=== PATIENT | male | born 1970 | race Caucasian/White ===

== ENCOUNTER 2016-06-08 14:19 | Inpatient (IN) | payer OTHER ==
[~2016-06-08] VITALS: Ht 167.6 cm; Wt 84.4 kg
[2016-06-08 15:11] LABS: BASOPHIL % 0.6 % (0-2); PLATELET COUNT 300 x10^3mcL (130-400); RED CELL DISTRIBUTION WIDTH 12.7 % (11.5-14.5)
[2016-06-08 15:18] LABS: CALCIUM 8.7 mg/dL (8.5-10.1); CARBON DIOXIDE 28.6 mmol/L (21-32); CHLORIDE SERUM 101 mmol/L (98-107); GFR1 > 60 mL/min; SODIUM SERUM 138 mmol/L (136-145)
[2016-06-08 15:25] LABS: ALBUMIN 4.3 g/dL (3.4-5.0); ALKALINE PHOSPHATASE 77 U/L (46-116); ALT/SGPT 41 U/L (16-63); AST/SGOT 26 U/L (15-37); BILIRUBIN TOTAL 0.7 mg/dL (0.20-1.00); MAGNESIUM 1.9 mg/dL (1.8-2.4); TOTAL PROTEIN, SERUM 7.9 g/dL (6.4-8.2)
[2016-06-08 15:32] LABS: AMPHETAMINE QUAL UR NONE DETECTED (NEG <=1000)
[2016-06-08 16:08] LABS: ERYTHROCYTE SED RATE 10 mm/hr (0-15)
[2016-06-08 16:13] LABS: GLUCOSE SERUM 117 mg/dL (74-106)
[2016-06-08 18:10] VITALS: BP 135/91
[2016-06-08 21:28] LABS: PHOSPHOROUS 3.8 mg/dL (2.5-4.9)
[2016-06-08 21:37] LABS: CHOLESTEROL 267 mg/dL (<200); CHOLESTEROL/HDL RATIO 4.3; HDL CHOLESTEROL 62 mg/dL (40-60); TRIGLYCERIDES 666 mg/dL (<150)
[2016-06-08 21:54] VITALS: BP 125/82
[2016-06-08 23:40] VITALS: BP 125/82
[2016-06-09 00:41] LABS: microscopic required? YES; urine erythrocyte TRACE (NEGATIVE)
[2016-06-09 06:10] VITALS: BP 118/75
[2016-06-09 06:23] LABS: BASOPHIL % 0.8 % (0-2); PLATELET COUNT 244 x10^3mcL (130-400); RED CELL DISTRIBUTION WIDTH 12.9 % (11.5-14.5)
[2016-06-09 06:41] LABS: CALCIUM 7.8 mg/dL (8.5-10.1); CHLORIDE SERUM 106 mmol/L (98-107); CREATININE SERUM 0.8 mg/dL (0.7-1.3); GFR1 > 60 mL/min; GLUCOSE SERUM 100 mg/dL (74-106); PHOSPHOROUS 4.2 mg/dL (2.5-4.9); POTASSIUM SERUM 4.1 mmol/L (3.5-5.1); SODIUM SERUM 139 mmol/L (136-145)
[2016-06-09 08:30] VITALS: BP 124/86
[2016-06-09 13:01] VITALS: BP 126/89
[2016-06-09 17:41] VITALS: BP 118/77
[2016-06-09 20:43] VITALS: BP 121/71
[2016-06-10 05:10] VITALS: BP 107/69
[2016-06-10 06:22] LABS: BASOPHIL % 0.8 % (0-2); PLATELET COUNT 228 x10^3mcL (130-400); RED CELL DISTRIBUTION WIDTH 12.9 % (11.5-14.5)
[2016-06-10 06:25] LABS: CALCIUM 7.9 mg/dL (8.5-10.1); CARBON DIOXIDE 23.6 mmol/L (21-32); CHLORIDE SERUM 107 mmol/L (98-107); CREATININE SERUM 0.8 mg/dL (0.7-1.3); GFR1 > 60 mL/min; GLUCOSE SERUM 98 mg/dL (74-106); PHOSPHOROUS 3.8 mg/dL (2.5-4.9); POTASSIUM SERUM 3.9 mmol/L (3.5-5.1); SODIUM SERUM 142 mmol/L (136-145)
[2016-06-10] MEDS ORDERED: LIPI10 PO (09:14)
[2016-06-10] MEDS ORDERED: PRI20 PO (09:14)
[2016-06-10] MEDS ORDERED: TRICOR48 M1 PO (09:14)
[2016-06-10 10:19] VITALS: BP 109/74
[2016-06-10 12:02] VITALS: BP 109/74
[2016-06-10 12:50] VITALS: BP 120/83
== END 2016-06-10 13:39 | disposition home or self-care (01) | DRG 382 ==
LOC: ED 14:19 → DU 17:10 → MU 06-09 15:40
PROVIDERS: Emergency Medicine; Internal Medicine; ADMIT Family Medicine
PROC: 0DB68ZX Excision of Stomach, Via Natural or Artificial Opening Endoscopic, Diagnostic (ICD-10-PCS; principal; 2016-06-10 07:15)
DX: K22.10 Ulcer of esophagus without bleeding (principal); K29.00 Acute gastritis without bleeding; F10.10 Alcohol abuse, uncomplicated; E66.9 Obesity, unspecified; Z68.30 Body mass index [BMI] 30.0-30.9, adult; E78.1 Pure hyperglyceridemia; E78.5 Hyperlipidemia, unspecified
CPT/HCPCS: 43235; 80307; 83880; J1200; J1610; J2060; J2250; J2270; J2310; J3010; J3490; J7030; J7620; Q0092